=== PATIENT | female | born 1940 | race Caucasian/White ===

== ENCOUNTER 2017-02-04 11:10 | Day surgery (SDC) | payer MEDICARE ==
[2017-01-11 09:12] VITALS: BMI 27.9
[2017-02-04] MEDS ORDERED: Lactated Ringer's 1,000 ML IV ONE (18:10)
[2017-02-04] MEDS ORDERED: Propofol 10 mg/ml Inj (20 ML) ONE (18:16)
--- NOTE | 2017-02-04 18:48 | PCM.SURG1 ---
Surgeon's Initial Post Op Note - Surgeon's Notes Surgeon: Dr. Arevalo Floor Press Operator: None Type of Anesthesia: General LMA Anesthesia Administered By: Dr. Maria Pre-Operative Diagnosis: 76 yo with postmenopausal bleeding, Fibroid uterus, Endometrial polyp Operative Findings: Av Uterus with Fibroid uterus and endometrial polyp Post-Operative Diagnosis: Same as above Operation Performed: Hysteroscopy Myomectomy D and C Specimen/Specimens Removed: Fibroid , polyp, EMC, ECC Estimated Blood Loss: EBL {In ML}: 10 Blood Products Given: N/A Drains Used: No Drains Post-Op Condition: Good Date of Surgery/Procedure: 02/04/17 Time of Surgery/Procedure: 18:48
--- NOTE | 2017-02-04 19:47 | OP ---
PROCEDURE DATE: 02/04/2017 PREOPERATIVE DIAGNOSES: A 76-year-old female with postmenopausal bleeding, thickened endometrium, fi broid uterus, and endometrial polyp. POSTOPERATIVE DIAGNOSES: A 76-year-old female with postmenopausal bleeding, thickened endometrium, f ibroid uterus, and endometrial polyp. PROCEDURE: Hysteroscopy, myomectomy, D and C. SURGEON: Dr. Arevalo. ANESTHESIOLOGIST: Dr. Maria. TYPE OF ANESTHESIA: General LMA. FINDINGS: An anteverted uterus approximately 8 weeks' gestation, noted to have a fibroid uterus toge ther with endometrial polyps behind the fibroid. COMPLICATIONS: None. ESTIMATED BLOOD LOSS: Approximately 10 mL. INTRAVENOUS FLUIDS: 500 mL. URINE OUTPUT: With straight cath was 10 mL IN AND OUTS: 100 mL. SPECIMEN: Fibroid polyp EMC, ECC. PROCEDURE: The patient was informed of the risk factors, benefits, and alternatives of procedure. R isk factors included infection, bleeding, damage to surrounding organs and tissue, complication from anesthesia. After informed consent was obtained, she was then taken to the operating room, prepped a nd draped in normal sterile fashion, placed in dorsal lithotomy position. A weighted speculum was pl aced into the vagina. The anterior lip of the cervix was grasped with a single-tooth tenaculum. Lucas edil was gently sounded to approximately 8 cm. Upon complete uterine dilation, the scope was then oscar von and a complete surveillance of the uterine cavity was performed which identified a leiomyoma toge ther with endometrial polyp behind the fibroid. With the MyoSure device, the hysteroscopy and myomec memo was then performed and specimen was submitted to the ____ and excellent hemostasis. Then, it w as proceeded to remove the endometrial polyp which was again removed, excellent hemostasis and submit charlie to the pathologist. In that particular instance, a complete surveillance again with the scope wa s then performed, noted that the leiomyoma was removed and ____ in that particular instance, the scop e was then removed. A fractional D and C was performed. EMC and ECC was performed. Excellent hemos tasis. Instruments and lap count were correct x 2. The patient was then taken to recovery in stable condition and instructed to follow up in the office in approximately 2 weeks. Denae Arevalo MD cc: [id number] TT: 02/04/2017 19:46:37 jn
[2017-02-04 20:17] VITALS: BP 157/54; PULSE 53; RESP 12; TEMP 98; O2SAT 100
== END 2017-02-04 20:10 | disposition home or self-care (01) ==
LOC: C.SDS 11:10
PROVIDERS: ATTEND Obstetrics & Gynecology
DX: N84.0 Polyp of corpus uteri (principal); N85.00 Endometrial hyperplasia, unspecified
CPT/HCPCS: 57505; 58561; 82948; 88305; J2405; J2704; J3010; J7120

== ENCOUNTER 2019-01-12 14:58 | Outpatient (CLI) | payer MEDICARE | END 2019-01-12 14:59 | disposition home or self-care (01) | LOC: C.MAMMO 14:58 | DX: Z12.31 Encounter for screening mammogram for malignant neoplasm of breast (principal) ==